=== PATIENT | female | born 1960 | race Caucasian/White ===

== ENCOUNTER → 2016-11-19 | Outpatient (CLI) | payer OTHER | LOC: BRMIMAGING 14:55 | DX: Z12.31 Encounter for screening mammogram for malignant neoplasm of breast (principal) | CPT/HCPCS: G0202 ==

== ENCOUNTER → 2017-12-29 | Outpatient (CLI) | payer OTHER | LOC: BRMIMAGING 15:09 | PROVIDERS: ATTEND Family Medicine | DX: Z12.31 Encounter for screening mammogram for malignant neoplasm of breast (principal); Z80.3 Family history of malignant neoplasm of breast ==

== ENCOUNTER → 2019-03-09 | Outpatient (CLI) | payer OTHER | LOC: BRMIMAGING 12:29 ==